=== PATIENT | female | born 1995 | race Caucasian/White ===

== ENCOUNTER 2020-05-02 17:43 | Emergency (ER) | payer MEDICAID, SELFPAY ==
[2020-05-02 18:24] VITALS: BP 160/100; PULSE 118; RESP 17; TEMP 37.2; O2SAT 98; BMI 36.8
--- NOTE | 2020-05-02 18:44 | HMH.EDUTC ---
[facility] [place] Clinical Impression: Muscle spasms of neck Disposition: Home, Self-Care Condition on Discharge: Good Instructions: Tizanidine, Etodolac, DI for Muscle Spasm Additional Instructions: *Etodolac maximo 6 hours with meal as needed for pain/inflammation *Not additional anti-inflammatory like motrin, ibuprofen aleve, advil with the above amount of Etodolac. You can still take Tylenol every 4 hours as needed if you need something else for pain *Ice 20 minutes every 2 hours for the first 48 hours after the initial injury followed by moist heat every 20 minutes 3-4 times a day to affected area *Muscle relaxer as prescribed as needed for muscle spasms but remember, it WILL cause drowsiness You cannot take it and drive, operate machinery or care for small children. *Keep this area active, no movement leads to more stiffness, However take it easy and avoid heavy lifting pushing or pulling *Follow up with you family doctor if no improvement for further treatment Return if needed Straight to ER if any life threatening symptoms Follow up with Family Doctor or Chiropractor if pain and spasms continued Prescriptions: Etodolac [Etodolac 200mg Cap*] 200 mg PO Q6H PRN #20 cap PRN Reason: Moderate Pain Transmission Status: Received by [id number] Tizanidine HCl [Tizanidine HCl 2mg] 2 mg PO TID PRN #12 tab PRN Reason: Muscle Spasm Transmission Status: Received by [id number] Referrals: Jennifer Peñaloza PA [Primary Care Provider] - As needed Forms: Work/School Release Time of Disposition: 19:04 Medical Decision Making - Cisco Inquiry Pt receiving controlled substance: No Cisco was queried for this patient: No Vital Signs: 05/02/20 18:24 Temperature 98.9 F Temperature Source Oral Pulse Rate [Right Brachial] 118 H Respiratory Rate 17 Blood Pressure [Right Arm] 160/100 H Blood Pressure Mean [Right Arm] 120 Blood Pressure Source [Right Arm] Automatic Cuff Blood Pressure Position [Right Arm] Sitting 02 Sat by Pulse Oximetry 98 Oxygen Delivery Method Room Air - Lab Data Lab results reviewed: Yes: I reviewed the patient's lab results. Lab Results 05/02/20 18:46: [facility] Negative Orders (Tests/Meds): ED MEDICATIONS Discontinued Medications Generic Name Dose Route Start Last Admin Trade Name Mitch PRN Reason Stop Dose Admin Methylprednisolone Sodium Succinate 125 mg 05/02/20 18:58 05/02/20 19:03 Methylprednisolone Sod Succ 125mg Vial IM 05/02/20 18:59 125 mg ONCE ONE Administration Medical Decision Narrative: Patient blood pressure elevated patient reports that she has elevated blood pressure when she goes to the doctor and is in pain [facility] [place] - General Stated complaint: Pulled muscle in neck, pain Time Seen by Provider: 05/02/20 18:44 Mode of Arrival: Ambulatory Source of Information: Patient Limitations: No Limitations Description of Symptoms (Recalled from Triage Doc. 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
[2020-05-02 18:55] LABS: UTC Pregnancy Test, Urine Negative (Negative)
[2020-05-02 19:18] VITALS: BP 160/100; PULSE 118; RESP 17; TEMP 37.2; O2SAT 98
== END 2020-05-02 19:20 | disposition home or self-care (01) ==
PROVIDERS: Emergency Provider Nurse Practitioner; PCP Physician Assistant Medical
DX: M54.2 Cervicalgia (principal); M62.838 Other muscle spasm; Z88.0 Allergy status to penicillin
CPT/HCPCS: 81025; 96372; 99201

== ENCOUNTER 2021-05-22 14:13 | Emergency (ER) | payer MEDICAID, SELFPAY ==
[2021-05-22 15:11] VITALS: BP 168/101; PULSE 72; RESP 18; TEMP 36.8; O2SAT 100; BMI 32.9
[2021-05-22 15:31] LABS: Color,Urine Yellow (Yellow)
[2021-05-22 15:32] LABS: Apearance,Urine Clear (Clear); Bilirubin,Urine Negative (Negative); Blood, Urine Negative (Negative); Glucose,Urine (UA) Negative (Negative); Ketones,Urine Negative (Negative); Protein,Urine Negative (Negative); Specific Gravity, Urine 1.015 (1.005-1.030); UTC Leukocyte Esterase,Urine Negative (Negative); Urobilinogen,Urine 0.2 EU/dl (0.2)
[2021-05-22 15:33] VITALS: BP 168/101; PULSE 72; RESP 18; TEMP 36.8
[2021-05-22 15:33] LABS: UTC Nitrate,Urine Negative (Negative); UTC Pregnancy Test, Urine Negative (Negative)
--- NOTE | 2021-05-22 15:38 | HMH.EDUTC ---
[facility] [place] Clinical Impression: Bacterial vaginosis Disposition: Home, Self-Care Condition on Discharge: Good Instructions: Bacterial Vaginosis, DI for Bacterial Vaginosis, Metronidazole Additional Instructions: Take medication as prescribed Follow up with OBGYN for further evaluation and treatment Return if needed Follow up with your Family Doctor as scheduled Prescriptions: Fluconazole [Diflucan 150mg tab] 150 mg PO DIRECTED #2 tab Transmission Status: Received by [id number] metroNIDAZOLE [metroNIDAZOLE 500mg Tablet] 500 mg PO BID 7 Days #14 tab Transmission Status: Received by [id number] Referrals: Jennifer Peñaloza PA [Primary Care Provider] - As needed Medical Decision Making - Cisco Inquiry Pt receiving controlled substance: No Cisco was queried for this patient: No Vital Signs: 05/22/21 15:11 05/22/21 15:33 Temperature 98.2 F 98.2 F Temperature Source Oral Pulse Rate 72 Pulse Rate [Left] 72 Respiratory Rate 18 18 Blood Pressure 168/101 H Blood Pressure [Right Arm] 168/101 H Blood Pressure Mean [Right Arm] 123 02 Sat by Pulse Oximetry 100 - Lab Data Lab results reviewed: Yes: I reviewed the patient's lab results. Lab Results 05/22/21 15:27: Urine Color Yellow, Urine Appearance Clear, Urine pH 6.0, Ur Specific Lexa 1.015, Urine Protein Negative, Urine Glucose (UA) Negative, Urine Ketones Negative, Urine Blood Negative, Urine Nitrate Negative, Urine Bilirubin Negative, Urine Urobilinogen 0.2, Ur Leukocyte Esterase Negative, [facility] Negative [facility] [place] - General Stated complaint: possible yeast infection Time Seen by Provider: 05/22/21 15:38 Mode of Arrival: Ambulatory Source of Information: Patient Limitations: No Limitations Description of Symptoms (Recalled from Triage Doc. by RN): pt thinks she has a yeast infection. she was given the single pill dose by her pcp, she states this was unsuccessfull. pt is still having a emilee mucousy vaginal discharge. HEENT Symptoms (Recalled from RN notes): No Resp Symptoms (Recalled from RN notes): No Skin Symptoms (Recalled from RN notes): No MS Symptoms (Recalled from RN notes): No Functional Status (Recalled from RN notes): na - History of Present Illness Provider Complaint: Patient states that she has been having itching, burning, and discharge States that her PCP give her one diflucan and it helped some but still having the buring and itching with thin grayish colored discharge with strong odor State that today she was still having symptoms so she came in - Related Data Previous Rx's Medication Instructions Recorded Etodolac [Etodolac 200mg Cap*] 200 mg PO Q6H PRN #20 cap 05/02/20 Tizanidine HCl [Tizanidine HCl 2 mg PO TID PRN #12 tab 05/02/20 2mg] Fluconazole [Diflucan 150mg tab] 150 mg PO DIRECTED #2 tab 05/22/21 metroNIDAZOLE [metroNIDAZOLE 500mg 500 mg PO BID 7 Days #14 tab 05/22/21 Tablet] Allergies Allergy/AdvReac Type Severity Reaction Status Date / Time Gadolinium-Containing Allergy Verified 05/02/20 18:37 Contrast Medi Penicillins Allergy Verified 05/02/20 18:37 red dye Allergy Verified 05/02/20 18:37 - Worker's Comp Is this a Worker's Comp case?: No [facility] History - Hepatitis A Screen Drug use history?: No High risk sexual behaviors?: No History of sexually transmitted infection?: No Currently employed?: No Childcare worker?: No Do you have indoor plumbing?: Yes Do you have electricity?: Yes Attestation statement:: This patient has been screened for Hepatitis A risk factors. I have reviewed the patient's past medical history: Yes - Social History Alcohol Intake: never Occupational Status: other ROS Obtained: Yes All systems reviewed & no additional complaints, Yes Systems reviewed as appropriate & no additional complaints - Constitutional Constitutional: Reports system reviewed and no additional complaints, except as
== END 2021-05-22 16:05 | disposition home or self-care (01) ==
PROVIDERS: Emergency Provider Nurse Practitioner; PCP Physician Assistant Medical
DX: N76.0 Acute vaginitis (principal); Z88.0 Allergy status to penicillin
CPT/HCPCS: 81003; 81025; 99202; G0463

== ENCOUNTER 2024-12-10 21:32 | Emergency (ER) | payer MEDICAID, SELFPAY ==
[2024-12-10 21:50] VITALS: BP 165/112; PULSE 111; RESP 18; TEMP 36.8; O2SAT 99; BMI 36.8
[2024-12-10 22:12] LABS: Coronavirus 19, PCR Not Detected (NotDetected); Influenza A, PCR Not Detected (NotDetected); Influenza B, PCR Not Detected (NotDetected)
[2024-12-10 22:20] LABS: Strep Scrn Group A (Rapid) Negative (Negative)
--- NOTE | 2024-12-10 22:42 | CT_ITS ---
PROCEDURE INFORMATION: Exam: CT Neck With Contrast Exam date and time: 12/10/2024 11:48 PM Age: 29 years old Clinical indication: Painful swallowing; Additional info: Anterior neck pain difficulty swallowing TECHNIQUE: Imaging protocol: Computed tomography of the neck with contrast. Radiation optimization: All CT scans at this facility use at least one of these dose optimization techniques: automated exposure control; mA and/or kV adjustment per patient size (includes targeted exams where dose is matched to clinical indication); or iterative reconstruction. Contrast material: ISOVUE; Contrast volume: 75 ml; Contrast route: IV; COMPARISON: No relevant prior studies available. FINDINGS: Salivary glands: Normal. Glands are normal in size. Pharynx: Unremarkable. No significant tonsillar enlargement. Larynx: Unremarkable. Epiglottis is normal. Thyroid: Normal. No enlarged or calcified nodules. Trachea: Visualized trachea is unremarkable. Lungs: Unremarkable as visualized. Lymph nodes: Unremarkable. No lymphadenopathy. Bones/joints: Unremarkable. No acute fracture. Soft tissues: Unremarkable. No significant soft tissue swelling. IMPRESSION: No acute findings.
--- NOTE | 2024-12-10 22:46 | ED_ITS ---
Discharge Plan Disposition Patient Disposition: Home, Self-Care Condition: Fair Prescriptions Prescriptions: No Action tizanidine 2 MG tablet 2 mg PO TID PRN (Reason: Muscle Spasm) Qty: 12 0RF etodolac 200 MG capsule 200 mg PO Q6H PRN (Reason: Moderate Pain) Qty: 20 0RF metronidazole 500 MG tablet 500 mg PO BID 7 Days Qty: 14 0RF fluconazole 150 MG tablet 150 mg PO DIRECTED Qty: 2 0RF Rx Instructions: one tablet now and may repeat in 72 hours Referrals Follow up/Referrals: Jennifer Peñaloza PA [Primary Care Provider, Family Practice] - See instructions Activity Restrictions/Add. Instructions Additional Instructions/Restrictions: You were evaluated in the ER and are believed to be appropriate for discharge at this time. Rest and recover. Do not share drinks or food items with other people, mono is contagious through saliva. You may feel profoundly fatigued and under the weather for up to 6 weeks. Do not perform any dangerous activities or contact sports, you are at increased risk for the potential for spleen rupture. Drink plenty of fluids and stay well-hydrated, if you need to take pain medication I would prefer ibuprofen over acetaminophen since you have liver strain at this time. Please make an appointment with your primary care doctor to recheck your liver labs in 2 to 3 days. Return to the ER with any new, worsening, or otherwise concerning symptoms. Clinical Impressions Clinical Impression: Mononucleosis, Pharyngitis due to infectious mononucleosis, Transaminitis Print Language Print Language: Norwegian Discharge ED Provider: Andreas Owen General Adult HPI <Andreas Owen MD - Last Filed: 12/10/24 23:35> General Chief complaint: Fever Stated complaint: Body aches,throat swelling,tired Time Seen by Provider: 12/10/24 22:22 Mode of Arrival: Ambulatory Source of Information: Patient Description of Symptoms (Recalled from ER Triage Doc. by RN): PT presents for an evaluation of feeling fatigued, ear pain, throat pain and swollen lymph nodes bilaterally. Lymph node on back side of neck on left side is tender to touch. Low grade fever of 101.2. PT stated she had a sinus infection a month ago that caused cellulitis and was given abx. History of Present Illness HPI narrative: Patient is a 29-year-old female without comorbidities presents emergency department for evaluation of multiple complaints. She is felt as if she has a swollen throat with odynophagia and swollen lymph nodes as well as diffuse myalgias and fatigue over the last 1.5 to 2 weeks. Decreased p.o. intake but still making urine. No chest pain reported. No other acute complaints at this time. Past surgical history of prior tonsillectomy. She does have pressure in her ears worse on the right. Please note that above description of symptoms, in this electronic medical record under categorization of recalled from ER triage doctor by RN are reflective of an initial nursing assessment, however, is not reflective of my full history and physical exam that was personally taken and clarified. Consequentially, this preceding description of symptoms, which may include the patient's categorized chief complaint in the EMR, do not reflect my personal clinical impression, and the ultimate description of history of present illness and patient stated complaints should be deferred to this section of the note. Unless stated otherwise or congruent with this section of the note, additional signs, symptoms, or incongruence should be interpreted as inaccurate with my clinical impression. Related Data Previous Rx's ?Medication ?Instructions ?Recorded etodolac 200 mg capsule 200 mg PO Q6H PRN Moderate P ain 05/02/20 #20 caps tizanidine 2 mg tablet 2 mg PO TID PRN Muscle Spasm #12 05/02/20 tabs fluconazole 150 mg tablet 150 mg PO DIRECTED #2 tab s 05/22/21 metronidazole 500 mg tablet 500 mg PO BID 7 days #14 t abs 05/22/21 Allergies Allergy/AdvReac Type Severity Reaction Status Date / Time Gadolinium-Containing Allergy Verified 05/02/20 18:37 Contrast Medi Penicillins Allergy Verified 05/02/20 18:37 red dye Allergy Verified 05/02/20 18:37 [facility] <Andreas Owen MD - Last Filed: 12/10/24 23:35> [facility] Disclaimer: The information contained in this section may have been updated after the patient was seen, as this information can be updated by other users. Social History Smoking Status: Never smoker alcohol intake: never current occupational status: other Travel in the last 8 weeks?: None Have you lived/traveled outside [place] in past 30 days?: No Contact w/someone who lives/traveled outside [place] past 30 days?: No Exposure to someone with infectious disease in past 14 days?: No Do you have a fever (greater than 100.4 F or 38 C)?: No Have you tested positive for COVID-19?: No Exposed to someone with COVID-19 in past 14 days?: No Do you have a sore throat?: No Do you have a cough?: No Do you have any weakness?: No Do you have any diarrhea?: No Are you experiencing any unusual bleeding?: No Do you have any muscle aches/pain?: No Do you have any abdominal pain?: No Are you experiencing loss of taste or smell?: No <Andreas Owen MD - Last Filed: 12/10/24 23:35> ROS Obtained: Yes Systems reviewed as appropriate & no additional complaints except as documented Physical Exam <Andreas Owen MD - Last Filed: 12/10/24 23:35> General General appearance: alert and in no apparent distress Head Head exam: atraumatic and normocephalic Eye Eye exam: Present PERRL and EOMI ENT ENT exam: Present mucous membranes moist; Absent normal oropharynx (Punctate petechiae over the posterior soft palate, uvula midline, no asymmetric bulging of the lateral aspects of the throat) or TM's normal bilaterally (Serous effusion on the right, normal left TM) Neck Neck exam: Present full ROM and tenderness (Anterior and posterior cervical chain, bilateral flanking areas next to the thyroid cartilage) Chest Chest inspection: Present normal inspection and symmetric chest wall rise Respiratory Respiratory exam: Present normal lung sounds bilaterally; Absent respiratory distress Cardiovascular Cardiovascular exam: Present regular rate and normal rhythm Abdominal Exam Abdominal exam: Present soft Extremities Exam Extremities exam: Present normal inspection Neurological Exam Neurological exam: Present alert and CN II-XII intact; Absent motor sensory deficit Psychiatric Psychiatric exam: Present normal affect Skin Skin exam: Present warm and dry Medical Decision Making <Andreas Owen MD - Last Filed: 12/10/24 23:35> Medical Records Screening: Per USPSTF and CDC recommendations, given the prevalence of disease in our region, it is our hospital?s policy to screen for HIV and viral Hepatitis for all patients aged 18 and over and those with ongoing risk factors. [employer] Inquiry Pt receiving controlled substance: No Vital Signs: 12/10/24 21:50 12/11/24 01:07 Temperature 98.2 F Temperature Source Oral Pulse Rate 83 Pulse Rate [Right] 111 H Respiratory Rate 18 Blood Pressure 146/94 H Blood Pressure [Right Arm] 165/112 H Blood Pressure Mean [Right Arm] 129 02 Sat by Pulse Oximetry 99 98 Oxygen Delivery Method Room Air Lab Data Lab Results 12/10/24 21:58: SARS-CoV-2 (PCR) Not detected, Influenza A Untype (PCR) Not detected, Influenza Type B (PCR) Not detected, Group A Strep Rapid Negative 12/10/24 22:54: Urine HCG, Qual Negative 12/10/24 23:07: Sodium 137, Potassium 4.2, Chloride 103, Carbon Dioxide 27, Anion Gap 11.2, BUN 17, Creatinine 0.60, Estimated Creat Clear 213, Estimated GFR 118, Est GFR ( Amer) 143, Glucose 93, Calcium 9.4, Total Bilirubin 0.8, AST 166 H, ALT 252 H, Alkaline Phosphatase 132 H, Total Creatine Kinase 56, Total Protein 8.9 H, Albumin 4.8, Globulin 4.1 H, Albumin/Globulin Ratio 1.2, Serum HCG, Qual Negative, Monoscreen Positive A 12/10/24 23:17: TSH 3.80, Free T4 1.05 12/10/24 23:21: WBC 8.7, RBC 4.20, Hgb 12.3, Hct 35.9 L, MCV 85.5, MCH 29.3, MCHC 34.3, RDW 13.0, Plt Count 173, MPV 11.3 H, Neut % (Auto) 39.4, Lymph % (Auto) 52.6 H, [place] % (Auto) 6.3, Eos % (Auto) 0.9, Baso % (Auto) 0.7, Neut # (Auto) 3.4, Lymph # (Auto) 4.6 H, [place] # (Auto) 0.6, Eos # (Auto) 0.1, Baso # (Auto) 0.1 12/10/24 23:21 12/10/24 23:07 Orders (Tests/Meds): ED MEDICATIONS Generic Name Dose Route Start Last Admin Trade Name Freq PRN Reason Stop Dose Admin Sodium Chloride 10 ml 12/10/24 23:54 12/10/24 23:55 Sodium Chloride 0.9% 10ml Syr (Rad Only) IV 01/09/25 23:53 10 ml NEEDED PRN Administration Maintain IV Site Discontinued Medications Generic Name Dose Route Start Last Admin Trade Name Mitch PRN Reason Stop Dose Admin Acetaminophen 1,000 mg 12/10/24 22:43 12/10/24 23:02 Acetaminophen 1,000mg/100ml Vial IV 12/10/24 22:44 1,000 mg ONCE ONE Administration Diphenhydramine HCl 50 mg 12/10/24 22:58 12/10/24 23:03 Diphenhydramine 50mg/Ml Vial IV 12/10/24 22:59 50 mg ONCE ONE Administration Lactated Ringer's 1,000 mls @ 999 mls/hr 12/10/24 22:43 12/10/24 23:03 Lactated Ringer's 1000 Ml Bag IV 12/10/24 23:43 999 mls/hr .Q1H1M ONE Administration Iopamidol 75 ml 12/10/24 23:54 12/10/24 23:54 Iopamidol-370 (76%);100ml Bottle IV 12/10/24 23:55 75 ml ONCE ONE Administration Ketorolac Tromethamine 30 mg 12/10/24 22:43 12/10/24 23:03 Ketorolac 30mg/Ml Vial IV 12/10/24 22:44 30 mg ONCE ONE Administration ORDERS Category Date Time Status CT soft tissue neck w con Stat Cat Scan 12/10/24 22:42 Completed CBC w/Auto Diff [Complete Blood Count Auto Diff] Stat Lab 12/10/24 23:21 Completed CK [Creatine Kinase] Stat Lab 12/10/24 23:07 Completed CMP [Comprehensive Metabolic Panel] Stat Lab 12/10/24 23:07 Completed Free T4 (Free Thyroxine) Stat Lab 12/10/24 23:17 Completed HCG Qualitative, Serum Stat Lab 12/10/24 23:07 Completed Monoscreen (Rapid) Stat Lab 12/10/24 23:07 Completed Rapid PCR Covid and Flu A/B Stat Lab 12/10/24 21:58 Completed Strep Scrn Group A (Rapid) Stat Lab 12/10/24 21:58 Completed TSH [Thyroid Stimulating Hormone] Stat Lab 12/10/24 23:17 Completed Urine , HCG Qual. Stat Lab 12/10/24 22:54 Completed Strep Screen Confirmation Stat Micro 12/10/24 21:58 Received ECG Data Tracing #1: Independently interpreted by me rate is 100, rhythm is regular, axis is normal, no ST elevation anatomically contiguous leads, QTc 379 Medical Decision Narrative: In summary patient is a 29-year-old female with past medical history described above who presents to the emergency department for evaluation of odynophagia, myalgias. Patient is hemodynamically stable nontoxic-appearing arrival, tachycardic heart rate ranging between 110s or 130 on my exam. Patient does not have any purulence in the posterior oropharynx, does have some posterior palatal petechiae. Differential diagnosis includes infectious mononucleosis, neck mass, herpangina, among others. Workup will be conducted with hematologic labs initial interventions include crystalloid bolus, Toradol, Tylenol. I do not particularly have any concern for deep space neck infection given that she can laterally range and extend her neck. However compressive odynophagia remains on the differential and shared decision making discussion was had over the utility of CAT scan patient wishes to proceed at this time. She has a history of gadolinium contrast with MRI with hives that responded to Benadryl. She is unsure about iodinated contrast media. 50 mg IV Benadryl will be administered prior to CT imaging. CT imaging was pending at time of transfer of care to the oncoming physician, Dr. Fabian. <Aniyah Fabian MD - Last Filed: 12/11/24 01:19> Vital Signs: 12/10/24 21:50 12/11/24 01:07 Temperature 98.2 F Temperature Source Oral Pulse Rate 83 Pulse Rate [Right] 111 H Respiratory Rate 18 Blood Pressure 146/94 H Blood Pressure [Right Arm] 165/112 H Blood Pressure Mean [Right Arm] 129 02 Sat by Pulse Oximetry 99 98 Oxygen Delivery Method Room Air Lab Data Lab Results 12/10/24 21:58: SARS-CoV-2 (PCR) Not detected, Influenza A Untype (PCR) Not detected, Influenza Type B (PCR) Not detected, Group A Strep Rapid Negative 12/10/24 22:54: Urine HCG, Qual Negative 12/10/24 23:07: Sodium 137, Potassium 4.2, Chloride 103, Carbon Dioxide 27, Anion Gap 11.2, BUN 17, Creatinine 0.60, Estimated Creat Clear 213, Estimated GFR 118, Est GFR ( Amer) 143, Glucose 93, Calcium 9.4, Total Bilirubin 0.8, AST 166 H, ALT 252 H, Alkaline Phosphatase 132 H, Total Creatine Kinase 56, Total Protein 8.9 H, Albumin 4.8, Globulin 4.1 H, Albumin/Globulin Ratio 1.2, Serum HCG, Qual Negative, Monoscreen Positive A 12/10/24 23:17: TSH 3.80, Free T4 1.05 12/10/24 23:21: WBC 8.7, RBC 4.20, Hgb 12.3, Hct 35.9 L, MCV 85.5, MCH 29.3, MCHC 34.3, RDW 13.0, Plt Count 173, MPV 11.3 H, Neut % (Auto) 39.4, Lymph % (Auto) 52.6 H, [place] % (Auto) 6.3, Eos % (Auto) 0.9, Baso % (Auto) 0.7, Neut # (Auto) 3.4, Lymph # (Auto) 4.6 H, [place] # (Auto) 0.6, Eos # (Auto) 0.1, Baso # (Auto) 0.1 Orders (Tests/Meds): ED MEDICATIONS Generic Name Dose Route Start Last Admin Trade Name Freq PRN Reason Stop Dose Admin Sodium Chloride 10 ml 12/10/24 23:54 12/10/24 23:55 Sodium Chloride 0.9% 10ml Syr (Rad Only) IV 01/09/25 23:53 10 ml NEEDED PRN Administration Maintain IV Site Discontinued Medications Generic Name Dose Route Start Last Admin Trade Name Freq PRN Reason Stop Dose Admin Acetaminophen 1,000 mg 12/10/24 22:43 12/10/24 23:02 Acetaminophen 1,000mg/100ml Vial IV 12/10/24 22:44 1,000 mg ONCE ONE Administration Diphenhydramine HCl 50 mg 12/10/24 22:58 12/10/24 23:03 Diphenhydramine 50mg/Ml Vial IV 12/10/24 22:59 50 mg ONCE ONE Administration Lactated Ringer's 1,000 mls @ 999 mls/hr 12/10/24 22:43 12/10/24 23:03 Lactated Ringer's 1000 Ml Bag IV 12/10/24 23:43 999 mls/hr .Q1H1M ONE Administration Iopamidol 75 ml 12/10/24 23:54 12/10/24 23:54 Iopamidol-370 (76%);100ml Bottle IV 12/10/24 23:55 75 ml ONCE ONE Administration Ketorolac Tromethamine 30 mg 12/10/24 22:43 12/10/24 23:03 Ketorolac 30mg/Ml Vial IV 12/10/24 22:44 30 mg ONCE ONE Administration ORDERS Category Date Time Status CT soft tissue neck w con Stat Cat Scan 12/10/24 22:42 Completed CBC w/Auto Diff [Complete Blood Count Auto Diff] Stat Lab 12/10/24 23:21 Completed CK [Creatine Kinase] Stat Lab 12/10/24 23:07 Completed CMP [Comprehensive Metabolic Panel] Stat Lab 12/10/24 23:07 Completed Free T4 (Free Thyroxine) Stat Lab 12/10/24 23:17 Completed HCG Qualitative, Serum Stat Lab 12/10/24 23:07 Completed Monoscreen (Rapid) Stat Lab 12/10/24 23:07 Completed Rapid PCR Covid and Flu A/B Stat Lab 12/10/24 21:58 Completed Strep Scrn Group A (Rapid) Stat Lab 12/10/24 21:58 Completed TSH [Thyroid Stimulating Hormone] Stat Lab 12/10/24 23:17 Completed Urine , HCG Qual. Stat Lab 12/10/24 22:54 Completed Strep Screen Confirmation Stat Micro 12/10/24 21:58 Received Medical Decision Narrative: In summary patient is a 29-year-old female with past medical history described above who presents to the emergency department for evaluation of odynophagia, myalgias. Patient is hemodynamically stable nontoxic-appearing arrival, tachycardic heart rate ranging between 110s or 130 on my exam. Patient does not have any purulence in the posterior oropharynx, does have some posterior palatal petechiae. Differential diagnosis includes infectious mononucleosis, neck mass, herpangina, among others. Workup will be conducted with hematologic labs initial interventions include crystalloid bolus, Toradol, Tylenol. I do not particularly have any concern for deep space neck infection given that she can laterally range and extend her neck. However compressive odynophagia remains on the differential and shared decision making discussion was had over the utility of CAT scan patient wishes to proceed at this time. She has a history of gadolinium contrast with MRI with hives that responded to Benadryl. She is unsure about iodinated contrast media. 50 mg IV Benadryl will be administered prior to CT imaging. CT imaging was pending at time of transfer of care to the oncoming physician, Dr. Fabian. Rui: Upon my assumption of care patient is stable and resting comfortably. I agree with the assessment and plan from Dr. Owen. Labs reviewed by me demonstrates she does have mononucleosis and an associated transaminitis, clinically she does not have any evidence of liver failure and labs are also consistent with this. CT imaging personally interpreted does not demonstrate space-occupying lesion or other acute abnormality. See radiology read for final interpretation. On reassessment patient remained stable, no stridor, tolerating secretions, results were reviewed with the patient and she is appropriate for discharge at this time. She was given explicit instructions on continued symptomatic monitoring and management as well as explicit instructions regarding long-term risks of mono including splenic rupture, instructions for follow-up regarding elevated liver enzymes, and return precautions for the ER. She indicated understanding and the patient was discharged in stable condition. Critical Care <Andreas Owen MD - Last Filed: 12/10/24 23:35> Critical Care Time Critical Care Time: No
[2024-12-10 23:01] LABS: Urine Pregnancy, HCG Qual. Negative (Negative)
[2024-12-10] MEDS: ACETAMINOPHEN 1,000MG/100ML VIAL 1000 MG IV (23:02)
[2024-12-10] MEDS: KETOROLAC 30MG/ML VIAL 30 MG IV (23:03)
[2024-12-10] MEDS: LACTATED RINGERS 1000ML 1,000 ML 999 ML IV (23:03)
[2024-12-10] MEDS: diphenhydrAMINE 50MG/ML VIAL 50 MG IV (23:03)
--- NOTE | 2024-12-10 23:11 | ECG_ITS ---
APPROVED REPORT Exam: Resting ECG HR:100 bpm ECG Measurements Heart Rate 100 AXES MT 146 P 61 QRSd 86 QRS 48 QT 322 T 72 QTc 379 Conclusion SINUS TACHYCARDIA ABNORMAL RHYTHM ECG Electronically signed by : SRINIVAS VÁZQUEZ, 12/11/2024 03:53:44
[2024-12-10 23:24] LABS: Alanine Aminotransferase 252 U/L (12-78); Albumin Level 4.8 g/dl (3.5-5.0); Albumin/Globulin Ratio 1.2 (1.1-1.8); Alkaline Phosphatase 132 U/L (38-126); Anion Gap 11.2 mEq/L (5-15); Aspartate Amino Transferase 166 U/L (14-36); Bilirubin,Total 0.8 mg/dl (0.2-1.3); Blood Urea Nitrogen 17 mg/dl (7-17); Calcium 9.4 mg/dl (8.4-10.2); Carbon Dioxide 27 mmol/L (22.0-30.0); Chloride 103 mmol/L (98-107); Creatine Kinase 56 U/L (30-135); Creatinine Clearance Estimated 213 mL/min (50-200); Estimated Glomerular Filt Rate 118 ml/min (>60); GFR (African American) 143 ML/MIN (>60); Globulin 4.1 g/dL (1.3-3.2); Glucose 93 mg/dl (74-100); Potassium 4.2 mmoL/L (3.5-5.1); Sodium 137 mmol/L (136-145); Total Protein,Serum 8.9 g/dl (6.3-8.2)
[2024-12-10 23:30] LABS: Basophils # 0.1 K/mm3 (0-0.2); Basophils % 0.7 % (0.1-2.0); Eosinophils # 0.1 Kmm3 (0.0-0.4); Eosinophils % 0.9 % (0.1-12.0); Hematocrit 35.9 % (37.0-47.0); Hemoglobin 12.3 g/dL (12.2-16.2); Immature Granulocytes # 0.01 10^3uL; Immature Granulocytes % 0.1 %; Lymphocytes # 4.6 K/mm3 (0.7-4.5); Lymphocytes % 52.6 % (10-50); Mean Corpuscular HGB Conc 34.3 g/dL (31.8-35.4); Mean Corpuscular Hemoglobin 29.3 pg (27.0-31.2); Mean Corpuscular Volume 85.5 fl (81-99); Mean Platelet Volume 11.3 fl (7.4-10.4); Monocytes # 0.6 K/mm3 (0.1-1.0); Monocytes % 6.3 % (1.7-9.3); Neutrophils # 3.4 K/mm3 (1.8-7.8); Neutrophils % 39.4 % (37.0-80.0); Nucleated Red Blood Cells # 0 10^3/uL; Nucleated Red Blood Cells % 0 %; Platelet Count 173 K/mm3 (142-424); White Blood Count 8.7 K/mm3 (4.8-10.8)
[2024-12-10 23:32] LABS: HCG Qualitative, Serum Negative (Negative)
[2024-12-10 23:41] LABS: Monoscreen (Rapid) Positive (Negative)
[2024-12-10] MEDS: IOPAMIDOL-370 (76%);100ML BOTTLE 75 ML IV (23:54)
[2024-12-10] MEDS: SODIUM CHLORIDE 0.9% 10ML SYR (RAD ONLY) 10 ML IV (23:55)
[2024-12-11 00:16] LABS: Free T4 (Free Thyroxine) 1.05 ng/dl (0.78-2.19)
[2024-12-11 01:07] VITALS: BP 146/94; PULSE 83; O2SAT 98
[2024-12-11 01:43] VITALS: BP 145/100; PULSE 94; RESP 16; TEMP 36.9; O2SAT 99
== END 2024-12-11 01:45 | disposition home or self-care (01) ==
PROVIDERS: Emergency Medicine; Emergency Provider Emergency Medicine; PCP Physician Assistant Medical
DX: B27.90 Infectious mononucleosis, unspecified without complication (principal); R74.01 Elevation of levels of liver transaminase levels; R53.83 Other fatigue
CPT/HCPCS: 70491; 80053; 81025; 82550; 84439; 84443; 84703; 85025; 86318; 87430; 87636; 93005; 96361; 96374; 96375; 99284; J0131; J1200; J1885; J7120; Q9967